=== PATIENT | male | born 1935 | race Caucasian/White ===

== ENCOUNTER 2017-11-13 10:10 | Inpatient (IN) | payer MEDICARE, OTHER ==
[~2017-11-13] VITALS: Ht 182.9 cm; Wt 79.4 kg
--- NOTE | 2017-11-13 10:11 | NUR ---
[facility]RA FROM [facility]: COUGH, CONGESTION, SOB. PLACED ON MONITOR. AWAITING MD ORDER
[2017-11-13] MEDS ORDERED: IPRATROPIUM NEB FS 0.5 MG/2.5 ML AMPUL.NEB ONE (10:14)
[2017-11-13] MEDS ORDERED: ALBUTEROL FS 2.5 MG/3 ML VIAL.NEB ONE (10:14)
[2017-11-13] MEDS ORDERED: IPRATROPIUM NEB FS 0.5 MG/2.5 ML AMPUL.NEB NEB ONE (10:30)
[2017-11-13] MEDS ORDERED: IV NS 0.9% 1,000 ML BAG IV ONE (10:30)
[2017-11-13] MEDS ORDERED: ALBUTEROL FS 2.5 MG/3 ML VIAL.NEB NEB ONE (10:30)
[2017-11-13] MEDS ORDERED: VANCOMYCIN 1 GM in IV D5W 250 ML IV ONE ×2 (10:30→12:30)
[2017-11-13] MEDS ORDERED: CEFEPIME 1 GM in IV D5W 50 ML IV ONE (10:30)
[2017-11-13 10:43] LABS: BASOPHILS # (AUTO) 0.1 /CMM (0.0-0.2); BASOPHILS % (AUTO) 0.4 % (0.0-2.0); EOSINOPHILS % (AUTO) 0.1 % (0.0-6.0); HEMATOCRIT 43 % (39-51); HEMOGLOBIN 14.4 g/dL (13.5-17.5); LYMPHOCYTES # (AUTO) 2.3 /CMM (0.8-4.8); LYMPHOCYTES % (AUTO) 15.1 % (20.0-44.0); MEAN CORPUSCULAR HEMOGLOBIN 29 PG (26.0-33.0); MEAN CORPUSCULAR HGB CONC 34 g/dl (31.0-36.0); MEAN CORPUSCULAR VOLUME 87 fL (80-96); MONOCYTES % (AUTO) 6.5 % (2.0-12.0); NEUTROPHILS # (AUTO) 12.1 /CMM (1.8-8.9); NEUTROPHILS % (AUTO) 77.9 % (43.0-81.0); PLATELET COUNT (AUTO) 262 /CMM (150-450); RDW COEFFICIENT OF VARIATION 14.4 (11.5-15.0); RED BLOOD CELL COUNT(AUTO) 4.92 MIL/uL (4.5-6.0); WHITE BLOOD COUNT (AUTO) 15.5 K/uL (4.3-11.0)
[2017-11-13 10:57] LABS: INR 0.95 (0.87-1.13); PROTHROMBIN TIME 9.9 SECS (9.5-12.7)
--- NOTE | 2017-11-13 10:57 | NUR ---
CALLED PHARMACIST FOR ATB
[2017-11-13 11:00] VITALS: BP 120/83
[2017-11-13] MEDS ORDERED: Calcium Gluconate 1GM/10ML 4.65 MEQ in IV D5W 50 ML IV ONE (11:00)
--- NOTE | 2017-11-13 11:00 | NUR ---
RT RECD PT WITH SOH HR 140s rr 35 sp02 80% tx given wheezing and labored breathing continued placed pt on bipap 100% 15/5 RR16
[2017-11-13 11:18] LABS: CALCIUM, SERUM 9.1 mg/dL (8.5-10.1); CARBON DIOXIDE 17 mmol/L (21-32); CHLORIDE 105 mmol/L (98-107); CREATININE 1.5 mg/dL (0.6-1.3); GLUCOSE 231 mg/dL (74-106); POTASSIUM 3.6 mmol/L (3.5-5.1); SODIUM SERUM 139 mmol/L (136-145); UREA NITROGEN, BLOOD 28 mg/dL (7-18)
[2017-11-13 11:28] LABS: ALANINE AMINOTRANSFERASE 18 U/L (12-78); ALBUMIN 3.7 g/dL (3.4-5.0); ALKALINE PHOSPHATASE 103 U/L (46-116); ASPARTATE AMINOTRANSFERASE 65 U/L (15-37); BILIRUBIN,DIRECT 0.1 mg/dL (0.0-0.2); BILIRUBIN,TOTAL 0.5 mg/dL (0.2-1.0)
[2017-11-13] MEDS ORDERED: METOPROLOL TARTRATE INJ 5 MG/5 ML AMPUL ONE (11:29)
[2017-11-13] MEDS ORDERED: Magnesium 1GM/D5W 100ML PREMIX 200 ML IV ONE (11:29)
[2017-11-13 11:30] LABS: TROPONIN I 5.562 ng/mL (0.00-0.056)
[2017-11-13] MEDS ORDERED: METOPROLOL TARTRATE INJ 5 MG/5 ML AMPUL IV ONE (11:30)
[2017-11-13] MEDS: Magnesium 1GM/D5W 100ML PREMIX 100 ML IV SCH ×2 (11:30→11:45)
--- NOTE | 2017-11-13 11:33 | NUR ---
DR BAUTISTA WAS PAGED
--- NOTE | 2017-11-13 12:00 | NUR ---
RT PLACED PT ON 02/07 100%02 RR16
[2017-11-13] MEDS ORDERED: CHOL10002 PO (12:04)
[2017-11-13] MEDS ORDERED: CYAN10009 PO (12:04)
[2017-11-13] MEDS ORDERED: SENN-167 PO (12:04)
[2017-11-13] MEDS ORDERED: POLY119P2 PO (12:04)
[2017-11-13] MEDS ORDERED: ISOS30TA6 PO (12:04)
[2017-11-13] MEDS ORDERED: LEVE1000 PO (12:04)
[2017-11-13] MEDS ORDERED: CALC-1026 PO (12:04)
[2017-11-13] MEDS ORDERED: GABA-534 PO (12:04)
[2017-11-13] MEDS ORDERED: DABI150C PO (12:04)
[2017-11-13 12:11] VITALS: BP 58/30
[2017-11-13] MEDS ORDERED: ONDANSETRON HCL/PF 4 MG/2 ML VIAL IVP PRN (12:30)
[2017-11-13] MEDS ORDERED: PANTOPRAZOLE 40 MG VIAL IV SCH (12:30)
[2017-11-13] MEDS ORDERED: IV NS 0.9% 1,000 ML BAG IV PRN (12:30)
[2017-11-13] MEDS ORDERED: NOREPINEPHRINE 8 MG in IV D5W 500 ML IV PRN (12:30)
[2017-11-13] MEDS ORDERED: ACETAMINOPHEN 650 MG/SUPP.RECT RC PRN (12:30)
[2017-11-13] MEDS ORDERED: methylPREDNISolone SOD SUCC 125 MG/2ML VIAL IV SCH (13:00)
[2017-11-13] MEDS ORDERED: IV NS 0.9% 1,000 ML IV PRN (13:00)
--- NOTE | 2017-11-13 13:10 | NUR ---
[facility] CALLED AT [phone], SPOKE WITH MONTEZ. SHE WILL CONTACT PRIMARY CARE PROVIDER MONCIA MIRANDA ,MSN,[employer] OR DR SENG HERNANDEZ, SUPERVISING PHYSICIAN, GIVE US A CALL
--- NOTE | 2017-11-13 13:11 | NUR ---
ILIA CALLED BY DR BENTON 1257 PM
--- NOTE | 2017-11-13 14:15 | NUR ---
RELEASE OF REMAINS FORM IN CHART. SEE CHART. PCP MADE AWARE [facility] AWARE.
--- NOTE | 2017-11-13 14:37 | NUR ---
CALLED [facility]ICE, SPOKE WITH SHARI, SHE SAID THAT HE IS NOT A [employer]'S CASE AND WE MAY CALL [facility]
[2017-11-13] MEDS ORDERED: PIPERACILLIN /TAZOBACTAM 4.5 G in IV D5W 100 ML IV SCH (18:00)
[2017-11-14] MEDS ORDERED: VANCOMYCIN 500 MG in IV D5W 100 ML IV SCH ×2
== END 2017-11-13 12:57 | disposition expired | DRG 871 ==
LOC: ER 10:11 → TRANSITION 12:23
PROVIDERS: ADMIT Internal Medicine; ATTEND Internal Medicine
DX: A41.9 Sepsis, unspecified organism (principal); I21.4 Non-ST elevation (NSTEMI) myocardial infarction; J96.01 Acute respiratory failure with hypoxia; R65.21 Severe sepsis with septic shock; N17.0 Acute kidney failure with tubular necrosis; G93.1 Anoxic brain damage, not elsewhere classified; J18.9 Pneumonia, unspecified organism; D68.59 Other primary thrombophilia; G93.41 Metabolic encephalopathy; I48.91 Unspecified atrial fibrillation; I10 Essential (primary) hypertension; I25.10 Atherosclerotic heart disease of native coronary artery without angina pectoris; Z66 Do not resuscitate; Z86.73 Personal history of transient ischemic attack (TIA), and cerebral infarction without residual deficits; M85.80 Other specified disorders of bone density and structure, unspecified site
CPT/HCPCS: 36415; 71045; 80048-TC; 80076-TC; 83605-TC; 84484-TC; 85025-TC; 85730-TC; 87040-TC; 94660; A4606; C9113; J0610; J0692; J2405; J2543; J2930; J3370; J3475; J3490; J7030; J7060; Z7610